=== PATIENT | male | born 2000 | race African-American/Black ===

== ENCOUNTER 2020-08-28 22:58 | Emergency (ER) | payer OTHER ==
[~2020-08-28] VITALS: Ht 182.9 cm; Wt 72.6 kg
[2020-08-28 23:00] VITALS: BP 116/66
[2020-08-28] MEDS ORDERED: ONDANSETRON 4 MG TAB.RAPDIS ONE (23:15)
--- NOTE | 2020-08-28 23:27 | NUR ---
PATIENT IS MEDICALLY CLEARED FOR BOOKING.
[2020-08-28] MEDS: ONDANSETRON 4 MG TAB.RAPDIS SL ONE (23:34)
== END 2020-08-28 23:54 | disposition home or self-care (01) ==
LOC: ER 23:04
DX: R53.1 Weakness (principal); R11.0 Nausea
CPT/HCPCS: 82962; 99283; Q0162